=== PATIENT | male | born 1960 | race Caucasian/White ===

== ENCOUNTER 2020-07-02 23:39 | Inpatient (IN) | payer BC, MEDICARE ==
[~2020-07-02] VITALS: Ht 180.3 cm; Wt 101.2 kg
[2020-07-02 11:00] VITALS: BP 156/90
[~2020-07-02 23:39] MED LIST: ALBU8.5H6 IH; INSU100I11 SQ; INSU100I17 SQ; INSU100V8 SQ; OXYM30SP72 NS
[2020-07-02] MEDS ORDERED: HEPARIN 25,000UTS/250ML PREMIX 250 ML IV PRN (23:45)
[2020-07-02] MEDS ORDERED: HEPARIN for IV BOLUS 10,000 UNIT/10 ML VIAL. IV PRN (23:45)
[2020-07-03] MEDS ORDERED: CARVEDILOL 12.5 MG TABLET. PO SCH (01:00)
[2020-07-03] MEDS: ANTI-COAG MONITOR BY PHARMACY. MC PRN (02:38)
[2020-07-03 02:40] VITALS: BP 118/73
[2020-07-03] MEDS ORDERED: ATOR10TA60 PO (02:55)
[2020-07-03] MEDS ORDERED: SEVE800T9 PO (02:55)
[2020-07-03] MEDS ORDERED: FERR325T14 PO (02:55)
[2020-07-03] MEDS ORDERED: ONDA4TAB12 PO (02:55)
[2020-07-03] MEDS ORDERED: AMLO-187 PO (02:55)
[2020-07-03] MEDS ORDERED: PANT20TA2 PO (02:55)
[2020-07-03] MEDS ORDERED: CALC200T3 PO (02:55)
[2020-07-03] MEDS ORDERED: INSU100I13 SQ (02:55)
[2020-07-03] MEDS ORDERED: FURO80TA3 PO (02:55)
[2020-07-03] MEDS ORDERED: INSU100V31 SQ (02:55)
[2020-07-03] MEDS ORDERED: HYDR-2761 PO (02:55)
[2020-07-03] MEDS ORDERED: FERR210T PO (02:55)
[2020-07-03] MEDS ORDERED: CARV25TA2 PO (02:55)
[2020-07-03] MEDS ORDERED: CALC0.25 PO (02:55)
[2020-07-03] MEDS ORDERED: LOSA25TA PO (02:55)
[2020-07-03] MEDS ORDERED: MAGN400T5 PO (02:55)
[2020-07-03] MEDS ORDERED: HYDR-2868 PO (02:55)
[2020-07-03 05:18] LABS: BASO # 0.1 x10^3/uL (0.0-0.2); BASO % 1 % (0-3); EOS # 0.3 x10^3/uL (0.0-0.7); EOS % 4 % (0-3); HEMATOCRIT 35.6 % (39.0-53.0); HEMOGLOBIN 11.8 g/dL (13.0-17.5); LYMPH # 0.6 x10^3/uL (1.0-4.8); LYMPH % 9 % (24-48); MEAN CORPUSCULAR HEMOGLOBIN 30 pg (25-35); MEAN CORPUSCULAR HGB CONC 33 g/dL (31-37); MEAN CORPUSCULAR VOLUME 89 fL (79-100); MONO # 0.9 x10^3/uL (0.0-1.1); MONO % 12 % (0-9); NEUT # 5.3 x10^3/uL (1.8-7.7); NEUT % 74 % (31-73); PLATELET COUNT 203 x10^3/uL (140-400); RED BLOOD COUNT 3.99 x10^6/uL (4.30-5.70); RED CELL DISTRIBUTION WIDTH 17.7 % (11.5-14.5); WHITE BLOOD COUNT 7.1 x10^3/uL (4.0-11.0)
[2020-07-03 05:45] LABS: CALCIUM 7.1 mg/dL (8.5-10.1); CREATININE 10.8 mg/dL (0.7-1.3); GFR 4.9; POTASSIUM 3.7 mmol/L (3.5-5.1)
[2020-07-03 05:46] LABS: CHOLESTEROL/HDL RATIO 2.5
[2020-07-03 07:00] VITALS: BP 137/67
[2020-07-03] MEDS ORDERED: METOPROLOL IV PUSH 5 MG/5 ML VIAL. IVP PRN (09:30)
--- NOTE | 2020-07-03 10:30 | NUR ---
Wound/Ostomy Care Wound Type/Assessment: Wound care consult for left leg wound, pt unsure how it developed, appears to be cover with a stable eschar. Pt currently on dialysis. No other wounds noted on head to toe skin assessment. Treatment Recommendations/Plan: keep wound clean and dry, paint with betadine daily. Education provided: pt educated on PU prevention and on keeping weight off wound for healing Offloading surface/device: na, pt offloads independently Recommended Referrals/Tests: n/a Discharge Recommendations for dressings: same as above, told pt to let his nurse know if wound start draining or if it becomes soft so we can reevaluate, pt verbalized understanding.
[2020-07-03 11:00] VITALS: BP 137/55
[2020-07-03] MEDS ORDERED: DIGOXIN IV 500 MCG/2 ML AMPUL. IV ONE (12:30)
--- NOTE | 2020-07-03 14:15 | PDOC2 ---
CONSULT Date of Consult Date of Consult DATE: 07/03/20 TIME: 14:15 Reason for Consult Reason for Consult: ESRD on PD Source Source: Chart review, Patient History of Present Illness Reason for Visit: Mr Bonilla is a 60-year-old male w/ PMHx DM2, HTN, PVD, ESRD on PD, diastolic CHF who presents with chest tightness to [facility] on 07/02/2020. Patient states he was sitting at his doctor's office in the waiting room when the tightness began. Patient also reports nausea but denies vomiting. Patient denies any shortness of breath, dizziness, or radiation of pain. Patient was at his PCP for a wound check to lateral left lower leg. Patient states he did not notice the wound until Thursday. he did run out of coreg 5 days prior to presentation and noticed his heart racing since then. EKG sinus tachycardia, with a right bundle branch block, heart rate 131. On telemetry notably in atrial arrhythmia, he notes prior eliquis in the past but had life-threatening GI bleed. Past Medical History Past Medical History Cardiovascular: CHF, HTN, Hyperlipidemia, Other (PAD) CENTRAL NERVOUS SYSTEM: Periperal neuropathy GI: GI bleed Heme/Onc: Anemia NOS Hepatobiliary: No pertinent hx Psych: Anxiety Musculoskeletal: Osteoarthritis Rheumatologic: No pertinent hx Infectious disease: No pertinent hx ENT: No pertinent hx Renal/: Chronic renal failure (ESRD) Endocrine: Diabetes Dermatology: Other (left calf wound) Renal/: Acute renal failure Endocrine: Diabetes Past Surgical History Past Surgical History (LAV fistula; toe amputation, PD cath placement) Past Surgical History: Pacemaker Family History Family History Diabetes Family History: Family History Unknown Social History Social History Smoke: No ALCOHOL: none Current Medications Current Medications Current Medications Heparin Sodium/ Dextrose 250 ml @ 0 mls/hr CONT PRN IV PER PROTOCOL; Start 07/02/20 at 23:45 Heparin Sodium (Porcine) (Heparin Sodium) 2,550 unit PRN Q6HRS PRN IV FOR UFH LEVEL LESS THAN 0.2; Start 07/02/20 at 23:45 Info (Anti-Coagulation Monitoring By Pharmacy) 1 each PRN DAILY PRN MC SEE COMMENTS Last administered on 07/03/20at 02:38; Start 07/03/20 at 00:15 Carvedilol (Coreg) 25 mg BIDWMEALS PO Last administered on 07/03/20at 01:16; Start 07/03/20 at 01:00; Stop 07/03/20 at 12:46; Status DC Metoprolol Tartrate (Lopressor Vial) 5 mg PRN Q6HRS PRN IVP HR>110 BPM; Start 07/03/20 at 09:30 Digoxin (Lanoxin) 500 mcg 1X ONCE IV ; Start 07/03/20 at 12:30; Stop 07/03/20 at 12:31; Status DC Metoprolol Tartrate (Lopressor) 25 mg Q6HRS PO ; Start 07/03/20 at 13:00 Active Scripts Active Reported Renvela (Sevelamer Carbonate) 800 Mg Tablet 800 Mg PO TIDWMEALS Protonix (Pantoprazole Sodium) 20 Mg Tablet.dr 40 Mg PO BID Ondansetron Odt (Ondansetron) 4 Mg Tab.rapdis 4 Mg PO PRN Q8HRS PRN Magnesium Oxide 400 Mg Tablet 400 Mg PO DAILY Cozaar (Losartan Potassium) 25 Mg Tablet 25 Mg PO DAILY Lantus Solostar (Insulin Glargine,Hum.rec.anlog) 100 Unit/1 Ml Insuln.pen 20 Unit SQ HS Novolog (Insulin Aspart) 100 Unit/1 Ml Vial Unknown Dose SQ TIDWMEALS Hydrocodone-Apap 5-325 (Hydrocodone Bit/Acetaminophen) 1 Tab Tablet 1 Tab PO PRN Q6HRS PRN Hydralazine Hcl 25 Mg Tablet 25 Mg PO TID Furosemide 80 Mg Tablet 160 Mg PO DAILY Ferrous Sulfate 325 Mg Tablet 325 Mg PO QODAY Ferric Citrate 210 Mg Tablet 3 Tab PO BIDWMEALS Carvedilol 25 Mg Tablet 25 Mg PO BIDWMEALS Tums (Calcium Carbonate) 200 Mg Tab.chew 2 Tab PO TIDPCHC PRN Calcitriol 0.25 Mcg Capsule 0.25 Mcg PO DAILY Atorvastatin Calcium 10 Mg Tablet 10 Mg PO HS Amlodipine Besylate 10 Mg Tablet 10 Mg PO DAILY Allergies Allergies: Coded Allergies: levofloxacin (Verified Allergy, Intermediate, Nausea and Vomiting, 09/28/13) ROS Review of System As per HPI, rest of the ROS is negative Physical Exam Physical Exam General: No acute distress HEENT: Atraumatic, Mucous membr. moist/pink Neck supple Lungs: diminished bases, non labored Heart: (AFIB RVR) Abdomen: Soft, PD actheter place, No tenderness, no discharge from exit site Extremities: No cyanosis, No edema Skin: left lateral calf wound with large scabbing) Neuro: Normal speech, Sensation intact Psych/Mental Status: Mental status NL, Other (flat affect) Vital Signs Vital Signs Date Time Temp Pulse Resp B/P (MAP) Pulse Ox O2 Delivery O2 Flow Rate FiO2 07/03/20 02:40 97.8 141 18 118/73 (88) 96 Room Air 97.8 Assessment & Plan ESRD on PD under Dr. Wu's care He states he has been doing CAPD , Continue per home prescription Chest pain - resolved. likely from atrial tachycardia AFIB RVR - Cardiology consulted Chronic RBBB Hx of GI bleed due to eliquis Hx of RLE PAD - prior DIRECTOR [employer]/stent. s/p TMA of right foot DM2 COVID 19 suspected - rapid testing negative Labs Labs Laboratory Tests Test 07/03/20 04:18 07/03/20 07:30 07/03/20 11:26 White Blood Count 7.1 x10^3/uL (4.0-11.0) Red Blood Count 3.99 x10^6/uL (4.30-5.70) Hemoglobin 11.8 g/dL (13.0-17.5) Hematocrit 35.6 % (39.0-53.0) Mean Corpuscular Volume 89 fL (79-100) Mean Corpuscular Hemoglobin 30 pg (25-35) Mean Corpuscular Hemoglobin Concent 33 g/dL (31-37) Red Cell Distribution Width 17.7 % (11.5-14.5) Platelet Count 203 x10^3/uL (140-400) Neutrophils (%) (Auto) 74 % (31-73) Lymphocytes (%) (Auto) 9 % (24-48) Monocytes (%) (Auto) 12 % (0-9) Eosinophils (%) (Auto) 4 % (0-3) Basophils (%) (Auto) 1 % (0-3) Neutrophils # (Auto) 5.3 x10^3/uL (1.8-7.7) Lymphocytes # (Auto) 0.6 x10^3/uL (1.0-4.8) Monocytes # (Auto) 0.9 x10^3/uL (0.0-1.1) Eosinophils # (Auto) 0.3 x10^3/uL (0.0-0.7) Basophils # (Auto) 0.1 x10^3/uL (0.0-0.2) Heparin Anti-Xa Act, Unfractionated < 0.10 IU/mL (0.30-0.70) Sodium Level 140 mmol/L (136-145) Potassium Level 3.7 mmol/L (3.5-5.1) Chloride Level 102 mmol/L (98-107) Carbon Dioxide Level 18 mmol/L (21-32) Anion Gap 20 (6-14) Blood Urea Nitrogen 89 mg/dL (8-26) Creatinine 10.8 mg/dL (0.7-1.3) Estimated GFR (Cockcroft-Gault) 4.9 Glucose Level 75 mg/dL (70-99) Calcium Level 7.1 mg/dL (8.5-10.1) Troponin I Quantitative 0.120 ng/mL (0.000-0.055) Triglycerides Level 54 mg/dL (0-150) Cholesterol Level 100 mg/dL (0-200) LDL Cholesterol, Calculated 49 mg/dL (0-100) VLDL Cholesterol, Calculated 11 mg/dL (0-40) Non-HDL Cholesterol Calculated 60 mg/dL (0-129) HDL Cholesterol 40 mg/dL (40-60) Cholesterol/HDL Ratio 2.5 Glucose (Fingerstick) 65 mg/dL (70-99) 78 mg/dL (70-99) Laboratory Tests Test 07/03/20 04:18 07/03/20 07:30 07/03/20 11:26 White Blood Count 7.1 x10^3/uL (4.0-11.0) Red Blood Count 3.99 x10^6/uL (4.30-5.70) Hemoglobin 11.8 g/dL (13.0-17.5) Hematocrit 35.6 % (39.0-53.0) Mean Corpuscular Volume 89 fL (79-100) Mean Corpuscular Hemoglobin 30 pg (25-35) Mean Corpuscular Hemoglobin Concent 33 g/dL (31-37) Red Cell Distribution Width 17.7 % (11.5-14.5) Platelet Count 203 x10^3/uL (140-400) Neutrophils (%) (Auto) 74 % (31-73) Lymphocytes (%) (Auto) 9 % (24-48) Monocytes (%) (Auto) 12 % (0-9) Eosinophils (%) (Auto) 4 % (0-3) Basophils (%) (Auto) 1 % (0-3) Neutrophils # (Auto) 5.3 x10^3/uL (1.8-7.7) Lymphocytes # (Auto) 0.6 x10^3/uL (1.0-4.8) Monocytes # (Auto) 0.9 x10^3/uL (0.0-1.1) Eosinophils # (Auto) 0.3 x10^3/uL (0.0-0.7) Basophils # (Auto) 0.1 x10^3/uL (0.0-0.2) Heparin Anti-Xa Act, Unfractionated < 0.10 IU/mL (0.30-0.70) Sodium Level 140 mmol/L (136-145) Potassium Level 3.7 mmol/L (3.5-5.1) Chloride Level 102 mmol/L (98-107) Carbon Dioxide Level 18 mmol/L (21-32) Anion Gap 20 (6-14) Blood Urea Nitrogen 89 mg/dL (8-26) Creatinine 10.8 mg/dL (0.7-1.3) Estimated GFR (Cockcroft-Gault) 4.9 Glucose Level 75 mg/dL (70-99) Calcium Level 7.1 mg/dL (8.5-10.1) Troponin I Quantitative 0.120 ng/mL (0.000-0.055) Triglycerides Level 54 mg/dL (0-150) Cholesterol Level 100 mg/dL (0-200) LDL Cholesterol, Calculated 49 mg/dL (0-100) VLDL Cholesterol, Calculated 11 mg/dL (0-40) Non-HDL Cholesterol Calculated 60 mg/dL (0-129) HDL Cholesterol 40 mg/dL (40-60) Cholesterol/HDL Ratio 2.5 Glucose (Fingerstick) 65 mg/dL (70-99) 78 mg/dL (70-99) Review All relevant outside records, renal labs, imaging studies, telemetry/EKG's were reviewed. LOBO RANGEL MD Jul 03, 2020 14:15
--- NOTE | 2020-07-03 14:43 | PDOC2 ---
JOÃO GONZALEZ BIRD KEEPER 07/03/20 1443: CARDIAC CONSULT DATE OF CONSULT Date of Consult DATE: 07/03/20 TIME: 14:19 REASON FOR CONSULT Reason for Consult: Chest pain REFERRING PHYSICIAN Referring Physician: Franco SOURCE Source: Chart review, Patient HISTORY OF PRESENT ILLNESS HISTORY OF PRESENT ILLNESS This is a pleasant 60 yo male admitted for complains of chest pain. He was initially at [facility] and transferred to [facility] for nephrology coverage and for further cardiac evaluation. Reports of chest tightness starting yesterday. No SOA but reports of indigestion feeling. He sees Dr. 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 No hx of CAD or VTE but significant for ESRD and used to have HD but now on PD. Reportsno dizziness or palpitations but upon admission his HR was noted to be fast and confirmed he is in AFIB RVR. He told me that he was told of heart flutter in the past but he is not on any ASA. He was actually on eliquis in the past and could not tell me what for exactly but told me maybe from his arterial problem on his right leg. He did not tolerate the eliquis with significant anemia associated with GI bleed. He is DM and has had issues with circulation to his right leg and ulcers and actually had [employer] with stent to his RLE over a yr ago and also had some toe amputations. Has a healing wound to the lateral part of his left calf but could not ascertain how he got it but he does have neuropathy. PAST MEDICAL HISTORY Cardiovascular: CHF, HTN, Hyperlipidemia, Other (PAD) CENTRAL NERVOUS SYSTEM: Periperal neuropathy GI: GI bleed Heme/Onc: Anemia NOS Hepatobiliary: No pertinent hx Psych: Anxiety Musculoskeletal: Osteoarthritis Rheumatologic: No pertinent hx Infectious disease: No pertinent hx ENT: No pertinent hx Renal/: Chronic renal failure (ESRD) Endocrine: Diabetes Dermatology: Other (left calf wound) PAST SURGICAL HISTORY Past Surgical History: Other (LAV fistula; toe amputation, PD cath placement) FAMILY HISTORY Family History: Diabetes SOCIAL HISTORY Smoke: No ALCOHOL: none Lives: with Family CURRENT MEDICATIONS CURRENT MEDICATIONS Current Medications Medications (Trade) Dose Ordered Sig/Jorge Route PRN Reason Start Time Stop Time Status Last Admin Dose Admin Info (Anti-Coagulation Monitoring By Pharmacy) 1 each PRN DAILY PRN MC SEE COMMENTS 07/03/20 00:15 07/03/20 02:38 Carvedilol (Coreg) 25 mg BIDWMEALS PO 07/03/20 01:00 07/03/20 12:46 DC 07/03/20 01:16 ALLERGIES ALLERGIES: Coded Allergies: levofloxacin (Verified Allergy, Intermediate, Nausea and Vomiting, 09/28/13) ROS Review of System 14 point ROS evaluated with pertinent positives noted per HPI PHYSICAL EXAM General: Alert, Oriented X3, Cooperative, No acute distress HEENT: Atraumatic, Mucous membr. moist/pink Lungs: Other (diminished bases) Heart: Other (AFIB RVR) Abdomen: Soft Extremities: No cyanosis, Other (2+ bilateral LE pitting edema) Skin: Other (left lateral calf wound with large scabbing) Neuro: Normal speech, Sensation intact Psych/Mental Status: Mental status NL, Other (flat affect) MUSCULOSKELETAL: Osteoarthritic changes both hands VITALS/I&O VITALS/I&O: Vital Signs Date Time Temp Pulse Resp B/P (MAP) Pulse Ox O2 Delivery O2 Flow Rate FiO2 07/03/20 02:40 97.8 141 18 118/73 (88) 96 Room Air 97.8 LABS Lab: Laboratory Tests Test 07/03/20 04:18 07/03/20 07:30 07/03/20 11:26 White Blood Count 7.1 x10^3/uL (4.0-11.0) Red Blood Count 3.99 x10^6/uL (4.30-5.70) L Hemoglobin 11.8 g/dL (13.0-17.5) L Hematocrit 35.6 % (39.0-53.0) L Mean Corpuscular Volume 89 fL (79-100) Mean Corpuscular Hemoglobin 30 pg (25-35) Mean Corpuscular Hemoglobin Concent 33 g/dL (31-37) Red Cell Distribution Width 17.7 % (11.5-14.5) H Platelet Count 203 x10^3/uL (140-400) Neutrophils (%) (Auto) 74 % (31-73) H Lymphocytes (%) (Auto) 9 % (24-48) L Monocytes (%) (Auto) 12 % (0-9) H Eosinophils (%) (Auto) 4 % (0-3) H Basophils (%) (Auto) 1 % (0-3) Neutrophils # (Auto) 5.3 x10^3/uL (1.8-7.7) Lymphocytes # (Auto) 0.6 x10^3/uL (1.0-4.8) L Monocytes # (Auto) 0.9 x10^3/uL (0.0-1.1) Eosinophils # (Auto) 0.3 x10^3/uL (0.0-0.7) Basophils # (Auto) 0.1 x10^3/uL (0.0-0.2) Heparin Anti-Xa Act, Unfractionated < 0.10 IU/mL (0.30-0.70) L Sodium Level 140 mmol/L (136-145) Potassium Level 3.7 mmol/L (3.5-5.1) Chloride Level 102 mmol/L (98-107) Carbon Dioxide Level 18 mmol/L (21-32) L Anion Gap 20 (6-14) H Blood Urea Nitrogen 89 mg/dL (8-26) H Creatinine 10.8 mg/dL (0.7-1.3) H Estimated GFR (Cockcroft-Gault) 4.9 Glucose Level 75 mg/dL (70-99) Calcium Level 7.1 mg/dL (8.5-10.1) L Troponin I Quantitative 0.120 ng/mL (0.000-0.055) Triglycerides Level 54 mg/dL (0-150) Cholesterol Level 100 mg/dL (0-200) LDL Cholesterol, Calculated 49 mg/dL (0-100) VLDL Cholesterol, Calculated 11 mg/dL (0-40) Non-HDL Cholesterol Calculated 60 mg/dL (0-129) HDL Cholesterol 40 mg/dL (40-60) Cholesterol/HDL Ratio 2.5 Glucose (Fingerstick) 65 mg/dL (70-99) L 78 mg/dL (70-99) Laboratory Tests 07/03/20 04:18 Laboratory Tests 07/03/20 04:18 ASSESSMENT/PLAN ASSESSMENT/PLAN 1. AFIB RVR: possibly new 2. ESRD: uses PD 3. Mild troponin elevation: peaked at 0.1, possibly demand mediated with above culprits 4. Chronic RBBB 5. Hx of GI bleed due to eliquis 6. cute on chronic diastolic CHF 7. Hx of RLE PAD: prior [employer]/stent. 8. Left calf wound: appears to be pressure wound with large scabbing 9. Positive for claudication: possibly combine arterial/neuropathic 10. DM2 with DPN 11. PUI 12. Chest pain: likely from RVR Recommendations 1. DC coreg. Lopressor IV, start on metoprolol 25 mg q6 PO. Dig IV x1 if RVR is refractory 2. DC heparin. Start on ASA for stroke prevention. Unclear source of GI bleed in the past but reported started after low dose eliquis 3. Restart other home BP meds 4. Lipids are well on goal. Continue secondary prevention measures 5. LLE arterial duplex 6. TTE pending covid. CTA chest negative for PE 7. Outpt ischemic workup. JM HDEZ MD 07/04/20 0814: CARDIAC CONSULT ASSESSMENT/PLAN ASSESSMENT/PLAN Pt. seen and examined. Agree with above [employer] note. late entry for 07/03/2020 due to EMR outage. JOÃO GONZALEZ APRN Jul 03, 2020 14:43 JM HDEZ MD Jul 04, 2020 08:14
[2020-07-03 15:00] VITALS: BP 131/57
--- NOTE | 2020-07-03 15:42 | NUR ---
ANJUM following for discharge planning. Spoke with RN and reviewed chart. Pt transferred from [place]. Pt BERNARDO palmer, NPO, room air. Pt on a Heparin drip with consults to cardiology and nephrology. Pt on HD. ANJUM following. Addendum: 07/03/20 at 1543 by SERENA VALERO Pt on PD not HD
--- NOTE | 2020-07-03 15:55 | PDOC1 ---
History and Physical Date of Admission Date of Admission DATE: 07/03/20 TIME: 15:45 Identification/Chief Complaint Chief Complaint Chest pain Source Source: Patient History of Present Illness History of Present Illness Mr Bonilla is a 60-year-old male w/ PMHx DM2, HTN, PVD, ESRD on PD, diastolic CHF who presents with chest tightness to [place] [facility] on 07/02/2020. Patient states he was sitting at his doctor's office in the waiting room when the tightness began. Patient also reports nausea but denies vomiting. Patient denies any shortness of breath, dizziness, or radiation of pain. Patient was at his PCP for a wound check to lateral left lower leg. Patient states he did not notice the wound until Thursday. Patient denies taking anything prior to arrival. On further review he notes he did run out of coreg 5 days prior to presentation and noticed his heart racing since then. EKG sinus tachycardia, with a right bundle branch block, heart rate 131. Troponin 0.109. D-dimer was elevated 0.55. CTA ordered to rule out PE which was negative. Zosyn and Vanco given for lateral left leg wounds. Ankle, foot, tib-fib x-ray negative for osteomyelitis. Aspirin was also given to patient and he was transferred to [facility] for nephrology and cardiology consultation and further treatment. His chest pain had subsided by the time he arrived. Troponin still 0.1 On telemetry notably in atrial arrhythmia, he notes prior eliquis in the past but had life-threatening GI bleed. Past Medical History Cardiovascular: CHF, HTN, Hyperlipidemia, Other (PAD) CENTRAL NERVOUS SYSTEM: Periperal neuropathy GI: GI bleed Heme/Onc: Anemia NOS Hepatobiliary: No pertinent hx Psych: Anxiety Musculoskeletal: Osteoarthritis Rheumatologic: No pertinent hx Infectious disease: No pertinent hx ENT: No pertinent hx Renal/: Chronic renal failure (ESRD) Endocrine: Diabetes Dermatology: Other (left calf wound) Past Surgical History Past Surgical History: Other (LAV fistula; toe amputation, PD cath placement) Family History Family History: Diabetes Social History Smoke: No ALCOHOL: none Current Medications Current Medications Current Medications Heparin Sodium/ Dextrose 250 ml @ 0 mls/hr CONT PRN IV PER PROTOCOL; Start 07/02/20 at 23:45 Heparin Sodium (Porcine) (Heparin Sodium) 2,550 unit PRN Q6HRS PRN IV FOR UFH LEVEL LESS THAN 0.2; Start 07/02/20 at 23:45 Info (Anti-Coagulation Monitoring By Pharmacy) 1 each PRN DAILY PRN MC SEE COMMENTS Last administered on 07/03/20at 02:38; Start 07/03/20 at 00:15 Carvedilol (Coreg) 25 mg BIDWMEALS PO Last administered on 07/03/20at 01:16; Start 07/03/20 at 01:00; Stop 07/03/20 at 12:46; Status DC Metoprolol Tartrate (Lopressor Vial) 5 mg PRN Q6HRS PRN IVP HR>110 BPM; Start 07/03/20 at 09:30 Digoxin (Lanoxin) 500 mcg 1X ONCE IV ; Start 07/03/20 at 12:30; Stop 07/03/20 at 12:31; Status DC Metoprolol Tartrate (Lopressor) 25 mg Q6HRS PO ; Start 07/03/20 at 13:00 Aspirin (Ecotrin) 81 mg DAILYWBKFT PO ; Start 07/03/20 at 15:00 Active Scripts Active Reported Renvela (Sevelamer Carbonate) 800 Mg Tablet 800 Mg PO TIDWMEALS Protonix (Pantoprazole Sodium) 20 Mg Tablet.dr 40 Mg PO BID Ondansetron Odt (Ondansetron) 4 Mg Tab.rapdis 4 Mg PO PRN Q8HRS PRN Magnesium Oxide 400 Mg Tablet 400 Mg PO DAILY Cozaar (Losartan Potassium) 25 Mg Tablet 25 Mg PO DAILY Lantus Solostar (Insulin Glargine,Hum.rec.anlog) 100 Unit/1 Ml Insuln.pen 20 Unit SQ HS Novolog (Insulin Aspart) 100 Unit/1 Ml Vial Unknown Dose SQ TIDWMEALS Hydrocodone-Apap 5-325 (Hydrocodone Bit/Acetaminophen) 1 Tab Tablet 1 Tab PO PRN Q6HRS PRN Hydralazine Hcl 25 Mg Tablet 25 Mg PO TID Furosemide 80 Mg Tablet 160 Mg PO DAILY Ferrous Sulfate 325 Mg Tablet 325 Mg PO QODAY Ferric Citrate 210 Mg Tablet 3 Tab PO BIDWMEALS Carvedilol 25 Mg Tablet 25 Mg PO BIDWMEALS Tums (Calcium Carbonate) 200 Mg Tab.chew 2 Tab PO TIDPCHC PRN Calcitriol 0.25 Mcg Capsule 0.25 Mcg PO DAILY Atorvastatin Calcium 10 Mg Tablet 10 Mg PO HS Amlodipine Besylate 10 Mg Tablet 10 Mg PO DAILY Allergies Allergies: Coded Allergies: levofloxacin (Verified Allergy, Intermediate, Nausea and Vomiting, 09/28/13) ROS General: No: Chills, Night Sweats, Fatigue, Malaise, Appetite, Other PSYCHOLOGICAL ROS: No: Anxiety, Behavioral Disorder, Concentration difficultie, Decreased libido, Depression, Disorientation, Hallucinations, Hostility, Irritablity, Memory difficulties, Mood Swings, Obsessive thoughts, Physical abuse, Sexual abuse, Sleep disturbances, Suicidal ideation, Other Eyes: No Blurry vision, No Decreased vision, No Double vision, No Dry eyes, No Excessive tearing, No Eye Pain, No Itchy Eyes, No Loss of vision, No Photophobia, No Scotomata, No Uses contacts, No Uses glasses, No Other HEENT: No: Heacaches, Visual Changes, Hearing change, Nasal congestion, Nasal discharge, Oral lesions, Sinus pain, Sore Throat, Epistaxis, Sneezing, Snoring, Tinnitus, Vertigo, Vocal changes, Other ALLERGY AND IMMUNOLOGY: No: Hives, Insect Bite Sensitivity, Itchy/Watery Eyes, Nasal Congestion, Post Nasal Drip, Seasonal Allergies, Other Hematological and Lymphatic: No: Bleeding Problems, Blood Clots, Blood Transfusions, Brusing, Night Sweats, Pallor, Swollen Lymph Nodes, Other ENDOCRINE: No: Breast Changes, Galactorrhea, Hair Pattern Changes, Hot Flashes, Malaise/lethargy, Mood Swings, Palpitations, Polydipsia/polyuria, Skin Changes, Temperature Intolerance, Unexpected Weight Changes, Other Breast: No New/Changing Breast Lumps, No Nipple changes, No Nipple discharge, No Other Respiratory: No: Cough, Hemoptysis, Orthopnea, Pleuritic Pain, Shortness of breath, SOB with excertion, Sputum Changes, Stridor, Tachypnea, Wheezing, Other Cardiovascular: yes Chest Pain; No Palpitations, No Orthopnea, No Paroxysmal Noc. Dyspnea, No Edema, No Lt Headedness, No Other Gastrointestinal: No Nausea, No Vomiting, No Abdominal Pain, No Diarrhea, No Constipation, No Melena, No Hematochezia, No Other Genitourinary: No Dysuria, No Frequency, No Incontinence, No Hematuria, No Retention, No Discharge, No Urgency, No Pain, No Flank Pain, No Other, No , No , No , No , No , No , No Musculoskeletal: No Gait Disturbance, No Joint Pain, No Joint Stiffness, No Joint Swelling, No Muscle Pain, No Muscular Weakness, No Pain In:, No Swelling In:, No Other Neurological: No Behavorial Changes, No Bowel/Bladder ControlChng, No Confusion, No Dizziness, No Gait Disturbance, No Headaches, No Impaired Coord/balance, No Memory Loss, No Numbness/Tingling, No Seizures, No Speech Problems, No Tremors, No Visual Changes, No Weakness, No Other Skin: No Dry Skin, No Eczema, No Hair Changes, No Lumps, No Mole Changes, No Mottling, No Nail Changes, No Pruritus, No Rash, No Skin Lesion Changes, No Other, No Acne Physical Exam General: Alert, Oriented X3, Cooperative, No acute distress HEENT: Atraumatic, PERRLA, EOMI, Mucous membr. moist/pink Lungs: Clear to auscultation, Normal air movement Heart: S1S2, no thrills, no rubs Abdomen: Normal bowel sounds, Soft, No tenderness, No hepatosplenomegaly, No masses, Other (PD cath clean dry) Extremities: No clubbing, No cyanosis, No edema, Normal pulses, No tenderness/swelling Skin: Other (Left lateral lower leg with 4x8cm eschar, dusky, no surrounding erythema) Neuro: Normal gait, Normal speech, Strength at 5/5 X4 ext, Normal tone, Sensation intact, Cranial nerves 3-12 NL, Reflexes 2+ Psych/Mental Status: Mental status NL, Mood NL Vitals Vitals Vital Signs Date Time Temp Pulse Resp B/P (MAP) Pulse Ox O2 Delivery O2 Flow Rate FiO2 07/03/20 02:40 97.8 141 18 118/73 (88) 96 Room Air 97.8 Labs Labs Laboratory Tests Test 07/03/20 04:18 07/03/20 07:30 07/03/20 11:26 White Blood Count 7.1 x10^3/uL (4.0-11.0) Red Blood Count 3.99 x10^6/uL (4.30-5.70) Hemoglobin 11.8 g/dL (13.0-17.5) Hematocrit 35.6 % (39.0-53.0) Mean Corpuscular Volume 89 fL (79-100) Mean Corpuscular Hemoglobin 30 pg (25-35) Mean Corpuscular Hemoglobin Concent 33 g/dL (31-37) Red Cell Distribution Width 17.7 % (11.5-14.5) Platelet Count 203 x10^3/uL (140-400) Neutrophils (%) (Auto) 74 % (31-73) Lymphocytes (%) (Auto) 9 % (24-48) Monocytes (%) (Auto) 12 % (0-9) Eosinophils (%) (Auto) 4 % (0-3) Basophils (%) (Auto) 1 % (0-3) Neutrophils # (Auto) 5.3 x10^3/uL (1.8-7.7) Lymphocytes # (Auto) 0.6 x10^3/uL (1.0-4.8) Monocytes # (Auto) 0.9 x10^3/uL (0.0-1.1) Eosinophils # (Auto) 0.3 x10^3/uL (0.0-0.7) Basophils # (Auto) 0.1 x10^3/uL (0.0-0.2) Heparin Anti-Xa Act, Unfractionated < 0.10 IU/mL (0.30-0.70) Sodium Level 140 mmol/L (136-145) Potassium Level 3.7 mmol/L (3.5-5.1) Chloride Level 102 mmol/L (98-107) Carbon Dioxide Level 18 mmol/L (21-32) Anion Gap 20 (6-14) Blood Urea Nitrogen 89 mg/dL (8-26) Creatinine 10.8 mg/dL (0.7-1.3) Estimated GFR (Cockcroft-Gault) 4.9 Glucose Level 75 mg/dL (70-99) Calcium Level 7.1 mg/dL (8.5-10.1) Troponin I Quantitative 0.120 ng/mL (0.000-0.055) Triglycerides Level 54 mg/dL (0-150) Cholesterol Level 100 mg/dL (0-200) LDL Cholesterol, Calculated 49 mg/dL (0-100) VLDL Cholesterol, Calculated 11 mg/dL (0-40) Non-HDL Cholesterol Calculated 60 mg/dL (0-129) HDL Cholesterol 40 mg/dL (40-60) Cholesterol/HDL Ratio 2.5 Glucose (Fingerstick) 65 mg/dL (70-99) 78 mg/dL (70-99) Laboratory Tests Test 07/03/20 04:18 07/03/20 07:30 07/03/20 11:26 White Blood Count 7.1 x10^3/uL (4.0-11.0) Red Blood Count 3.99 x10^6/uL (4.30-5.70) Hemoglobin 11.8 g/dL (13.0-17.5) Hematocrit 35.6 % (39.0-53.0) Mean Corpuscular Volume 89 fL (79-100) Mean Corpuscular Hemoglobin 30 pg (25-35) Mean Corpuscular Hemoglobin Concent 33 g/dL (31-37) Red Cell Distribution Width 17.7 % (11.5-14.5) Platelet Count 203 x10^3/uL (140-400) Neutrophils (%) (Auto) 74 % (31-73) Lymphocytes (%) (Auto) 9 % (24-48) Monocytes (%) (Auto) 12 % (0-9) Eosinophils (%) (Auto) 4 % (0-3) Basophils (%) (Auto) 1 % (0-3) Neutrophils # (Auto) 5.3 x10^3/uL (1.8-7.7) Lymphocytes # (Auto) 0.6 x10^3/uL (1.0-4.8) Monocytes # (Auto) 0.9 x10^3/uL (0.0-1.1) Eosinophils # (Auto) 0.3 x10^3/uL (0.0-0.7) Basophils # (Auto) 0.1 x10^3/uL (0.0-0.2) Heparin Anti-Xa Act, Unfractionated < 0.10 IU/mL (0.30-0.70) Sodium Level 140 mmol/L (136-145) Potassium Level 3.7 mmol/L (3.5-5.1) Chloride Level 102 mmol/L (98-107) Carbon Dioxide Level 18 mmol/L (21-32) Anion Gap 20 (6-14) Blood Urea Nitrogen 89 mg/dL (8-26) Creatinine 10.8 mg/dL (0.7-1.3) Estimated GFR (Cockcroft-Gault) 4.9 Glucose Level 75 mg/dL (70-99) Calcium Level 7.1 mg/dL (8.5-10.1) Troponin I Quantitative 0.120 ng/mL (0.000-0.055) Triglycerides Level 54 mg/dL (0-150) Cholesterol Level 100 mg/dL (0-200) LDL Cholesterol, Calculated 49 mg/dL (0-100) VLDL Cholesterol, Calculated 11 mg/dL (0-40) Non-HDL Cholesterol Calculated 60 mg/dL (0-129) HDL Cholesterol 40 mg/dL (40-60) Cholesterol/HDL Ratio 2.5 Glucose (Fingerstick) 65 mg/dL (70-99) 78 mg/dL (70-99) Images Images Chest radiograph: The cardiomediastinal silhouette is enlarged. Prominence of the central vasculature and increased lung markings though in part related to low lung volumes with bronchovascular crowding. No confluent airspace infiltrate, large effusion or pneumothorax. Grossly intact osseous structures. Impression: Enlargement of the cardiomediastinal silhouette potentially with a component of central vascular congestion. No large effusion. No localized airspace opacity to suggest an organizing pneumonia. XR FOOT_LEFT 3 VIEWS, XR LT TIBIA + FIBULA, XR EXAM OF ANKLE_LEFT 3V Foot: No dorsal soft tissue swelling. No bone erosion is identified to suggest osteo myelitis. Mild degenerative arthropathy. No bone erosion is seen to suggest osteoarthritis. The mineralization appears normal. Tibia fibula: No acute fracture. There is subcutaneous edema. Arterial calcifications are seen. There is large patellar enthesophyte. Ankle: Ankle mortise is intact. No acute fracture. No soft tissue swelling. Tiny Achilles calcaneal enthesophyte. IMPRESSION: No acute bone abnormality. VTE Prophylaxis Ordered VTE Prophylaxis Devices: Yes VTE Pharmacological Prophylaxi: Yes Assessment/Plan Assessment/Plan A/P: Chest pain - resolved. likely from atrial tachycardia AFIB RVR - appears to be new. Cardiology consulted. 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 s/p TMA of right foot Left leg wound - appears to be pressure wound with no clear infection or cellulitis. Will have wound care for local debridement DM2 - sliding scale insulin COVID 19 suspected - rapid testing negative FEN - Renal ada diet PPX - heparin FULL CODE Dispo - inpatient for above Justifications for Admission Other Justification MARCIA BARROS MD Jul 03, 2020 15:55
[2020-07-03] MEDS: ASPIRIN ENTERIC COATED 81 MG TABLET.DR. PO SCH (16:48)
[2020-07-03] MEDS: METOPROLOL TART IMMED RELEASE 25 MG TABLET. PO SCH ×2 (16:49→22:33)
[2020-07-03 19:00] VITALS: BP 135/85
[2020-07-03] MEDS ORDERED: HYDROcodone/APAP 5/325MG 1 TAB TABLET PO PRN (21:00)
[2020-07-03] MEDS ORDERED: ONDANSETRON ODT 4 MG TAB.RAPDIS. PO PRN (21:00)
[2020-07-03] MEDS ORDERED: ATORVASTATIN CALCIUM 10 MG TABLET. PO SCH (21:00)
[2020-07-03] MEDS ORDERED: INSULIN GLARGINE SYRINGE. SQ SCH (21:00)
[2020-07-03] MEDS: CALCIUM CARBONATE 500 MG TAB.CHEW PO SCH (22:33)
[2020-07-03 23:00] VITALS: BP 142/76
[2020-07-04] MEDS: METOPROLOL TART IMMED RELEASE 25 MG TABLET. PO SCH ×3 (00:53→12:33)
[2020-07-04 03:00] VITALS: BP 162/72
[2020-07-04 07:00] VITALS: BP 153/73
[2020-07-04] MEDS ORDERED: PANTOPRAZOLE 40 MG TABLET.DR. PO SCH (07:30)
[2020-07-04] MEDS: ASPIRIN ENTERIC COATED 81 MG TABLET.DR. PO SCH (08:53)
[2020-07-04] MEDS: SEVELAMER CARBONATE 800 MG TABLET. PO SCH ×2 (08:53→12:32)
[2020-07-04] MEDS: CALCIUM CARBONATE 500 MG TAB.CHEW PO SCH ×2 (08:53→14:00)
[2020-07-04] MEDS ORDERED: CALCITRIOL 0.25 MCG CAPSULE. PO SCH (09:00)
[2020-07-04 11:00] VITALS: BP 153/75
--- NOTE | 2020-07-04 11:07 | PDOC ---
[employer] PROGRESS NOTE Date of Service DOS: DATE: 07/04/20 TIME: 11:06 Chief Complaint Chief Complaint A/P: Chest pain - resolved. likely from atrial tachycardia AFIB RVR - appears to be new. Cardiology consulted. Metoprolol ordered IV ESRD on PD Troponin elevation: peaked at 0.1, possibly demand mediated or chronic elevation Chronic RBBB Hx of GI bleed due to eliquis Acute on chronic diastolic CHF - needs PD, consulted nephrology Hx of RLE PAD - prior [employer]/stent. s/p TMA of right foot Left leg wound - appears to be pressure wound with no clear infection or cellulitis. Will have wound care for local debridement DM2 - sliding scale insulin COVID 19 suspected - rapid testing negative FEN - Renal ada diet PPX - heparin FULL CODE Dispo - inpatient for above History of Present Illness History of Present Illness Mr Bonilla is a 60-year-old male w/ PMHx DM2, HTN, PVD, ESRD on PD, diastolic CHF who presents with chest tightness to [place] ED on 07/02/2020. Patient states he was sitting at his doctor's office in the waiting room when the tightness began. Patient also reports nausea but denies vomiting. Patient denies any shortness of breath, dizziness, or radiation of pain. Patient was at his PCP for a wound check to lateral left lower leg. Patient states he did not notice the wound until Thursday. Patient denies taking anything prior to arrival. On further review he notes he did run out of coreg 5 days prior to presentation and noticed his heart racing since then. EKG sinus tachycardia, with a right bundle branch block, heart rate 131. Troponin 0.109. D-dimer was elevated 0.55. CTA ordered to rule out PE which was negative. Zosyn and Vanco given for lateral left leg wounds. Ankle, foot, tib-fib x-ray negative for osteomyelitis. Aspirin was also given to patient and he was transferred to [facility] for nephrology and cardiology consultation and further treatment. His chest pain had subsided by the time he arrived. Troponin still 0.1 On telemetry notably in atrial arrhythmia, he notes prior eliquis in the past but had life-threatening GI bleed. Rapid COVID 19 negative With metoprolol 50 mg twice daily has been in sinus rhythm. He does note he previously monitor an atrial tachycardia at [facility] and was going to have cardioversion but had also spontaneously gone to sinus rhythm. He has outpatient cardiology follow-up with [facility] cardiology and renal transplant in the next week and is stable for discharge home Consults: Cardiology Vitals/I&O Vitals/I&O: Vital Signs Date Time Temp Pulse Resp B/P (MAP) Pulse Ox O2 Delivery O2 Flow Rate FiO2 07/04/20 11:00 96.7 66 17 153/75 (101) 96 Room Air 96.7 I & O 07/03/20 07/03/20 07/04/20 15:00 23:00 07:00 Intake Total 500 ml 500 ml Output Total 200 ml Balance 500 ml 500 ml -200 ml Physical Exam General: Alert, Oriented X3, Cooperative, No acute distress Heart: Other (AFIB RVR) Lungs: Crackles, Other Abdomen: Normal bowel sounds, Soft, No tenderness, No hepatosplenomegaly, No masses, Other (PD cath clean dry) Extremities: No clubbing, No cyanosis, No edema, Normal pulses, No tenderness/swelling Skin: Other (Left lateral lower leg with 4x8cm eschar, dusky, no surrounding erythema) Labs Labs: Laboratory Tests Test 07/03/20 11:26 07/03/20 16:26 07/03/20 21:50 07/04/20 07:30 Glucose (Fingerstick) 78 mg/dL (70-99) 127 mg/dL (70-99) 296 mg/dL (70-99) 126 mg/dL (70-99) Test 07/04/20 10:45 Glucose (Fingerstick) 138 mg/dL (70-99) Comment Review of Relevant I have reviewed the following items cesar (where applicable) has been applied. Medications: Current Medications Medications (Trade) Dose Ordered Sig/Jorge Route PRN Reason Start Time Stop Time Status Last Admin Dose Admin Digoxin (Lanoxin) 500 mcg 1X ONCE IV 07/03/20 12:30 07/03/20 12:31 DC 07/03/20 12:30 Metoprolol Tartrate (Lopressor) 25 mg Q6HRS PO 07/03/20 13:00 07/04/20 05:45 Aspirin (Ecotrin) 81 mg DAILYWBKFT PO 07/03/20 15:00 07/04/20 08:53 Atorvastatin Calcium (Lipitor) 10 mg HS PO 07/03/20 21:00 07/03/20 22:33 Calcitriol (Rocaltrol) 0.25 mcg DAILY PO 07/04/20 09:00 07/04/20 08:59 Calcium Carbonate/ Glycine (Tums) 500 mg TIDPCHC PO 07/03/20 21:00 07/04/20 08:53 Sevelamer Carbonate (Renvela) 800 mg TIDWMEALS PO 07/04/20 08:00 07/04/20 08:53 Insulin Glargine (Lantus Syringe) 10 unit QHS SQ 07/03/20 21:00 07/03/20 22:39 Pantoprazole Sodium (Protonix) 40 mg BIDAC PO 07/04/20 07:30 07/04/20 05:45 Justifications for Admission Other Justification MARCIA BARROS MD Jul 04, 2020 11:07
[2020-07-04] MEDS ORDERED: METO25TA4 PO (12:00)
--- NOTE | 2020-07-04 12:06 | PDOC3 ---
Discharge Summary Visit Information Date of Admission: Jul 02, 2020 Date of Discharge: Jul 04, 2020 Admitting Diagnosis: Atrial fibrillation Final Diagnosis Atrial fibrillation Brief Hospital Course Allergies Allergies Coded Allergies Type Severity Reaction Last Updated Verified levofloxacin Allergy Intermediate Nausea and Vomiting 09/28/13 Yes Vital Signs Vital Signs Date Time Temp Pulse Resp B/P (MAP) Pulse Ox O2 Delivery O2 Flow Rate FiO2 07/04/20 11:00 96.7 66 17 153/75 (101) 96 Room Air 96.7 Lab Results Laboratory Tests Test 07/03/20 04:18 07/03/20 07:30 07/03/20 11:26 07/03/20 16:26 White Blood Count 7.1 x10^3/uL (4.0-11.0) Red Blood Count 3.99 x10^6/uL (4.30-5.70) Hemoglobin 11.8 g/dL (13.0-17.5) Hematocrit 35.6 % (39.0-53.0) Mean Corpuscular Volume 89 fL (79-100) Mean Corpuscular Hemoglobin 30 pg (25-35) Mean Corpuscular Hemoglobin Concent 33 g/dL (31-37) Red Cell Distribution Width 17.7 % (11.5-14.5) Platelet Count 203 x10^3/uL (140-400) Neutrophils (%) (Auto) 74 % (31-73) Lymphocytes (%) (Auto) 9 % (24-48) Monocytes (%) (Auto) 12 % (0-9) Eosinophils (%) (Auto) 4 % (0-3) Basophils (%) (Auto) 1 % (0-3) Neutrophils # (Auto) 5.3 x10^3/uL (1.8-7.7) Lymphocytes # (Auto) 0.6 x10^3/uL (1.0-4.8) Monocytes # (Auto) 0.9 x10^3/uL (0.0-1.1) Eosinophils # (Auto) 0.3 x10^3/uL (0.0-0.7) Basophils # (Auto) 0.1 x10^3/uL (0.0-0.2) Heparin Anti-Xa Act, Unfractionated < 0.10 IU/mL (0.30-0.70) Sodium Level 140 mmol/L (136-145) Potassium Level 3.7 mmol/L (3.5-5.1) Chloride Level 102 mmol/L (98-107) Carbon Dioxide Level 18 mmol/L (21-32) Anion Gap 20 (6-14) Blood Urea Nitrogen 89 mg/dL (8-26) Creatinine 10.8 mg/dL (0.7-1.3) Estimated GFR (Cockcroft-Gault) 4.9 Glucose Level 75 mg/dL (70-99) Calcium Level 7.1 mg/dL (8.5-10.1) Troponin I Quantitative 0.120 ng/mL (0.000-0.055) Triglycerides Level 54 mg/dL (0-150) Cholesterol Level 100 mg/dL (0-200) LDL Cholesterol, Calculated 49 mg/dL (0-100) VLDL Cholesterol, Calculated 11 mg/dL (0-40) Non-HDL Cholesterol Calculated 60 mg/dL (0-129) HDL Cholesterol 40 mg/dL (40-60) Cholesterol/HDL Ratio 2.5 Glucose (Fingerstick) 65 mg/dL (70-99) 78 mg/dL (70-99) 127 mg/dL (70-99) Test 07/03/20 21:50 07/04/20 07:30 07/04/20 10:45 Glucose (Fingerstick) 296 mg/dL (70-99) 126 mg/dL (70-99) 138 mg/dL (70-99) Laboratory Tests Test 07/03/20 16:26 07/03/20 21:50 07/04/20 07:30 07/04/20 10:45 Glucose (Fingerstick) 127 mg/dL (70-99) 296 mg/dL (70-99) 126 mg/dL (70-99) 138 mg/dL (70-99) Brief Hospital Course Mr Bonilla is a 60-year-old male w/ PMHx DM2, HTN, PVD, ESRD on PD, diastolic CHF who presents with chest tightness to [place] [facility] on 07/02/2020. Patient states he was sitting at his doctor's office in the waiting room when the tightness began. Patient also reports nausea but denies vomiting. Patient denies any shortness of breath, dizziness, or radiation of pain. Patient was at his PCP for a wound check to lateral left lower leg. Patient states he did not notice the wound until Thursday. Patient denies taking anything prior to arrival. On further review he notes he did run out of coreg 5 days prior to presentation and noticed his heart racing since then. EKG sinus tachycardia, with a right bundle branch block, heart rate 131. Troponin 0.109. D-dimer was elevated 0.55. CTA ordered to rule out PE which was negative. Zosyn and Vanco given for lateral left leg wounds. Ankle, foot, tib-fib x-ray negative for osteomyelitis. Aspirin was also given to patient and he was transferred to [facility] for nephrology and cardiology consultation and further treatment. His chest pain had subsided by the time he arrived. Troponin still 0.1 On telemetry notably in atrial arrhythmia, he notes prior eliquis in the past but had life-threatening GI bleed. Rapid COVID 19 negative With metoprolol 50 mg twice daily has been in sinus rhythm. He does note he previously monitor an atrial tachycardia at [facility] and was going to have cardioversion but had also spontaneously gone to sinus rhythm. He has outpatient cardiology follow-up with [facility] cardiology and renal transplant in the next week and is stable for discharge home Consults: Cardiology, nephrology Problem list: Chest pain - resolved. likely from atrial tachycardia AFIB RVR - appears to be new. Cardiology consulted. 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 s/p TMA of right foot Left leg wound - appears to be pressure wound with no clear infection or cellulitis. Will have wound care for local debridement DM2 - sliding scale insulin H/O COVID - april 2020, currently rapid testing negative Greater than 30 minutes spent on d/c home with outpatient f/u Discharge Information Condition at Discharge: Improved Follow Up: Weeks Disposition/Orders: D/C to Home Scheduled Atorvastatin Calcium (Atorvastatin Calcium) 10 Mg Tablet, 10 MG PO HS for FOR CHOLESTEROL, #30 Ref 0 (Reported) Entered as Reported by: VINNY PULIDO on 07/03/20 0255 Last Action: Continued on 07/03/202052 by MARCIA BARROS MD Calcitriol (Calcitriol) 0.25 Mcg Capsule, 0.25 MCG PO DAILY for supplement, (Reported) Entered as Reported by: VINNY PULIDO on 07/03/20254 Last Action: Continued on 07/03/202052 by MARCIA BARROS MD Ferric Citrate (Ferric Citrate) 210 Mg Tablet, 3 TAB PO BIDWMEALS for HD, (Repor liza) Entered as Reported by: VINNY PULIDO on 07/03/20254 Last Action: New Order on 07/03/20254 by VINNY PULIDO Ferrous Sulfate (Ferrous Sulfate) 325 Mg Tablet, 325 MG PO QODAY for supplement, (Reported) Entered as Reported by: VINNY PULIDO on 07/03/20254 Last Action: Continued on 07/03/202052 by MARCIA BARROS MD Furosemide (Furosemide) 80 Mg Tablet, 160 MG PO DAILY for chf, (Reported) Entered as Reported by: VINNY PULIDO on 07/03/20254 Last Action: New Order on 07/03/20254 by VINNY PULIDO Insulin Aspart (Novolog) 100 Unit/1 Ml Vial, Unknown Dose SQ TIDWMEALS for dm, (Reported) Entered as Reported by: VINNY PULIDO on 07/03/20254 Last Taken: UNKNOWN on Unknown Date & Time Last Action: New Order on 07/03/20254 by VINNY PULIDO Insulin Glargine,Hum.rec.anlog (Lantus Solostar) 100 Unit/1 Ml Insuln.pen, 20 UNIT SQ HS for dm, (Reported) Entered as Reported by: VINNY PULIDO on 07/03/20254 Last Action: Converted on 07/03/202052 by MARCIA BARROS MD Losartan Potassium (Cozaar ) 25 Mg Tablet, 25 MG PO DAILY for HYPERTENSION, (Reported) Entered as Reported by: VINNY PULIDO on 07/03/20254 Last Action: New Order on 07/03/20254 by VINNY PULIDO Magnesium Oxide (Magnesium Oxide) 400 Mg Tablet, 400 MG PO DAILY for supplement, (Reported) Entered as Reported by: VINNY PULIDO on 07/03/20254 Last Action: New Order on 07/03/20254 by VINNY PULIDO Metoprolol Tartrate (Metoprolol Tartrate) 25 Mg Tablet, 50 MG PO BID for Afib for 30 Days, #120 Ref 2 Prescribed by: MARCIA BARROS MD on 07/04/20 1200 Pantoprazole Sodium (Protonix) 20 Mg Tablet.dr, 40 MG PO BID for gerd, (Reported) Entered as Reported by: VINNY PULIDO on 07/03/20254 Last Action: Converted on 07/03/202052 by MARCIA BARROS MD Sevelamer Carbonate (Renvela) 800 Mg Tablet, 800 MG PO TIDWMEALS for esrd, (Reported) Entered as Reported by: VINNY PULIDO on 07/03/20254 Last Action: Continued on 07/03/202052 by MARCIA BARROS MD Scheduled PRN Calcium Carbonate (Tums) 200 Mg Tab.chew, 2 TAB PO TIDPCHC PRN for INDIGESTION, (Reported) Entered as Reported by: VINNY PULIDO on 07/03/20254 Last Action: Continued on 07/03/202052 by MARCIA BARROS MD Hydrocodone Bit/Acetaminophen (Hydrocodone-Apap 5-325 ) 1 Tab Tablet, 1 TAB PO PRN Q6HRS PRN for PAIN, Ref 0 (Reported) Entered as Reported by: VINNY PULIDO on 07/03/20254 Last Action: Continued on 07/03/202052 by MARCIA BARROS MD Ondansetron (Ondansetron Odt) 4 Mg Tab.rapdis, 4 MG PO PRN Q8HRS PRN for NAUSEA/VOMITING, (Reported) Entered as Reported by: VINNY PULIDO on 07/03/20254 Last Action: Continued on 07/03/202052 by MARCIA BARROS MD Discontinued Medications Amlodipine Besylate (Amlodipine Besylate) 10 Mg Tablet, 10 MG PO DAILY for htn, (Reported) Entered as Reported by: VINNY PULIDO on 07/03/20254 Last Action: New Order on 07/03/20254 by VINNY PULIDO Carvedilol (Carvedilol) 25 Mg Tablet, 25 MG PO BIDWMEALS for CARDIAC, (Reported) Entered as Reported by: VINNY PULIDO on 07/03/20254 Last Action: New Order on 07/03/20254 by VINNY PULIDO Hydralazine Hcl (Hydralazine Hcl) 25 Mg Tablet, 25 MG PO TID for htn, (Reported) Entered as Reported by: VINNY PULIDO on 07/03/20254 Last Action: New Order on 07/03/20254 by VINNY PULIDO Justicifation of Admission Dx: Justifications for Admission: Justification of Admission Dx: Yes CHF: Cardiac Arrhythmias MARCIA BARROS MD Jul 04, 2020 12:06
--- NOTE | 2020-07-04 12:18 | PDOC ---
DATE OF SERVICE DATE: 07/04/20 TIME: 12:18 SUBJECTIVE ROS Stable, possible dc home today OBJECTIVE Vital Signs Vital Signs Date Time Temp Pulse Resp B/P (MAP) Pulse Ox O2 Delivery O2 Flow Rate FiO2 07/04/20 11:00 96.7 66 17 153/75 (101) 96 Room Air 96.7 I & 0 Intake and Output 07/04/20 07:00 Intake Total 1000 ml Output Total 200 ml Balance 800 ml Intake Oral 1000 ml Output Urine Total 200 ml # Voids 1 PHYSICAL EXAM Physical Exam General: No acute distress HEENT: Atraumatic, Mucous membr. moist/pink Neck supple Lungs: diminished bases, non labored Heart: (AFIB RVR) Abdomen: Soft, PD actheter place, No tenderness, no discharge from exit site Extremities: No cyanosis, No edema Skin: left lateral calf wound with large scabbing) Neuro: Normal speech, Sensation intact Psych/Mental Status: Mental status NL, Other (flat affect) DIAGNOSIS/ASSESSMENT Assessment & Plan ESRD on PD under Dr. Wu's care CAPD , Continue per home prescription Chest pain - resolved. likely from atrial tachycardia AFIB RVR - Cardiology consulted Chronic RBBB Hx of GI bleed due to eliquis Hx of RLE PAD - prior INTRAVENOUS THERAPY NURSE/stent. s/p TMA of right foot DM2 COVID 19 suspected - rapid testing negative COMMENT/RELEVANT DATA Meds Current Medications Medications (Trade) Dose Ordered Sig/Jorge Start Time Stop Time Status Last Admin Dose Admin Acetaminophen/ Hydrocodone Bitart (Lortab 5/325) 1 tab PRN Q6HRS PRN 07/03/20 21:00 Aspirin (Ecotrin) 81 mg [id number] 07/03/20 15:00 07/04/20 08:53 81 MG Atorvastatin Calcium (Lipitor) 10 mg HS 07/03/20 21:00 07/03/20 22:33 10 MG Calcitriol (Rocaltrol) 0.25 mcg DAILY 07/04/20 09:00 07/04/20 08:59 0.25 MCG Calcium Carbonate/ Glycine (Tums) 500 mg TIDPCHC 07/03/20 21:00 07/04/20 08:53 500 MG Carvedilol (Coreg) 25 mg BIDWMEALS 07/03/20 01:00 07/03/20 12:46 DC 07/03/20 01:16 25 MG Digoxin (Lanoxin) 500 mcg 1X ONCE 07/03/20 12:30 07/03/20 12:31 DC 07/03/20 12:30 500 MCG Ferrous Sulfate (Feosol) 325 mg QODAY 07/05/20 09:00 Heparin Sodium (Porcine) (Heparin Sodium) 2,550 unit PRN Q6HRS PRN 07/02/20 23:45 Heparin Sodium/ Dextrose 250 ml @ 0 mls/hr CONT PRN 07/02/20 23:45 Info (Anti-Coagulation Monitoring By Pharmacy) 1 each PRN DAILY PRN 07/03/20 00:15 07/03/20 02:38 1 EACH Insulin Glargine (Lantus Syringe) 10 unit QHS 07/03/20 21:00 07/03/20 22:39 10 UNIT Metoprolol Tartrate (Lopressor Vial) 5 mg PRN Q6HRS PRN 07/03/20 09:30 Metoprolol Tartrate (Lopressor) 25 mg Q6HRS 07/03/20 13:00 07/04/20 05:45 25 MG Ondansetron HCl (Zofran Odt) 4 mg PRN Q8HRS PRN 07/03/20 21:00 Pantoprazole Sodium (Protonix) 40 mg BIDAC 07/04/20 07:30 07/04/20 05:45 40 MG Sevelamer Carbonate (Renvela) 800 mg TIDWMEALS 07/04/20 08:00 07/04/20 08:53 800 MG Lab Laboratory Tests Test 07/03/20 16:26 07/03/20 21:50 07/04/20 07:30 07/04/20 10:45 Glucose (Fingerstick) 127 mg/dL (70-99) 296 mg/dL (70-99) 126 mg/dL (70-99) 138 mg/dL (70-99) Results All relevant outside records, renal labs, imaging studies, telemetry/EKG's were reviewed. Justicifation of Admission Dx: Justifications for Admission: Justification of Admission Dx: Yes CHF: Cardiac Arrhythmias LOBO RANGEL MD Jul 04, 2020 12:18
--- NOTE | 2020-07-04 12:32 | NUR ---
SW following for discharge planning. Spoke with RN and reviewed chart. Pt to discharge home today, 07/04 self-care. Pt on room air and oral medications. No further SW needs.
[2020-07-04 12:33] VITALS: BP 153/75
[2020-07-04] MEDS ORDERED: ASPI-886 PO (14:12)
--- NOTE | 2020-07-04 14:20 | PDOC ---
CARDIO Progress Notes Date and Time Date of Service 07/04/2020 Time of Evaluation 1210 Subjective Subjective: No Chest Pain, No shortness of breath, No Palpitations Vitals Vitals Vital Signs Date Time Temp Pulse Resp B/P (MAP) Pulse Ox O2 Delivery O2 Flow Rate FiO2 07/04/20 12:33 66 153/75 07/04/20 11:00 96.7 17 96 Room Air 96.7 Weight Weight [ ] Input and Output Intake and Output Intake and Output 07/04/20 07:00 Intake Total 1000 ml Output Total 200 ml Balance 800 ml Intake Oral 1000 ml Output Urine Total 200 ml # Voids 1 Laboratory Labs Laboratory Tests Test 07/03/20 16:26 07/03/20 21:50 07/04/20 07:30 07/04/20 10:45 Glucose (Fingerstick) 127 mg/dL (70-99) 296 mg/dL (70-99) 126 mg/dL (70-99) 138 mg/dL (70-99) Physical Exam HEENT: Neck Supple W Full Motion Chest: Symmetric LUNGS: Other (diminished bases) Heart: S1S2, RRR (SR) Abdomen: Soft N/T Extremities: No Calf Tenderness Neurology: alert, oriented, follow commands Assessment Assessment 1. AFIB RVR: new. 2. ESRD: uses PD.being considered for renal transplant 3. Mild troponin elevation: peaked at 0.1, possibly demand mediated with above culprits 4. Chronic RBBB 5. Hx of GI bleed due to eliquis 6. Acute on chronic diastolic CHF: compensated 7. 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 8. Left calf wound: appears to be pressure wound with large scabbing 9. Positive for LLE claudication: possibly combined arterial/neuropathic 10. DM2 with DPN 11. PUI 12. Chest pain: likely from RVR Recommendations 1. DC coreg. Continue po lopressor 2. DC heparin. Start on ASA for stroke prevention. Unclear source of GI bleed in the past but reported started after low dose eliquis 3. Restart other home BP meds 4. Lipids are well on goal. Continue secondary prevention measures 5. Consider LLE arterial duplex and outpt ischemic w/u as an outpt 6. Pt is to see Dr. Adam valdovinos and has appointment already with [facility]. Discussed with pt and he will need MCOT. Justicifation of Admission Dx: Justifications for Admission: Justification of Admission Dx: Yes CHF: Cardiac Arrhythmias JOÃO GONZALEZ BULB GROWER Jul 04, 2020 14:20
--- NOTE | 2020-07-04 14:45 | NUR ---
Discharge Note: NIKKI BLAIR [facility] Discharge instructions and discharge home medications reviewed with Patient and a copy given. All questions have been answered and understanding verbalized. The following instructions and handouts were given: discharge instructions, med list, afib info. Discontinued lines and drains: Peripheral IV intact. Patient discharged to Home or Self Care with Family Member via Wheelchair at 1445. Addendum: 07/04/20 at 1913 by JONH MAURICIO RN D/C wound pic taken & placed in chart. Education given to patient about care of wound.
[2020-07-04] MEDS: ANTI-COAG MONITOR BY PHARMACY. MC PRN (16:51)
[2020-07-05] MEDS ORDERED: FERROUS SULFATE 325 MG TABLET. PO SCH (09:00)
== END 2020-07-04 14:45 | disposition home or self-care (01) | DRG 308 ==
LOC: 6 SOUTH 23:39
PROVIDERS: ADMIT Internal Medicine; ATTEND Internal Medicine
DX: I48.91 Unspecified atrial fibrillation (principal); N18.6 End stage renal disease; I50.33 Acute on chronic diastolic (congestive) heart failure; I13.2 Hypertensive heart and chronic kidney disease with heart failure and with stage 5 chronic kidney disease, or end stage renal disease; E11.22 Type 2 diabetes mellitus with diabetic chronic kidney disease; I45.10 Unspecified right bundle-branch block; F41.9 Anxiety disorder, unspecified; E78.5 Hyperlipidemia, unspecified; E11.51 Type 2 diabetes mellitus with diabetic peripheral angiopathy without gangrene; E11.42 Type 2 diabetes mellitus with diabetic polyneuropathy; M19.90 Unspecified osteoarthritis, unspecified site; Z20.822 Contact with and (suspected) exposure to COVID-19; Z88.8 Allergy status to other drugs, medicaments and biological substances; Z89.429 Acquired absence of other toe(s), unspecified side; Z99.2 Dependence on renal dialysis; Z79.899 Other long term (current) drug therapy; Z83.3 Family history of diabetes mellitus
CPT/HCPCS: 36415; 80048; 80061; 82962; 84484; 85025; 85520; 93005; J1160; J1815; G0378

== ENCOUNTER 2021-05-02 13:03 | Emergency (ER) | payer BC, MEDICARE ==
[~2021-05-02] VITALS: Ht 177.8 cm; Wt 95.5 kg
[~2021-05-02 13:03] MED LIST changes: +AMLO-187 PO; +ASPI-886 PO; +ATOR10TA60 PO; +CALC0.25 PO; +CALC200T3 PO; +CARV25TA2 PO; +FERR210T PO; +FERR325T14 PO; +FURO80TA3 PO; +HYDR-2761 PO; +HYDR-2868 PO; +INSU100I13 SQ; +INSU100V31 SQ; +LOSA25TA PO; +MAGN400T48 PO; +METO25TA4 PO; +ONDA4TAB12 PO; +PANT20TA2 PO; +SEVE800T9 PO
--- NOTE | 2021-05-02 13:52 | RAD ---
XR CHEST 1V 05/02/2021 1:39 PM INDICATION: Altered mental status COMPARISON: None available TECHNIQUE: Portable frontal view of the chest is provided. FINDINGS: The cardiomediastinal silhouette is enlarged. Lungs are clear. There are no significant pleural effusions. There is mild pulmonary vascular congestion. No pneumotho rax. No suspicious osseous abnormality. IMPRESSION: Enlarged cardiac silhouette is noted be seen with cardiomyopathy or pericardial effusion. Mild pulmon jenny vascular congestion as may be seen with congestive heart failure. Electronically signed by: Laverne Mcgee MD (05/02/2021 1:50 PM) [id number]
[2021-05-02 14:21] LABS: BASO # 0.1 x10^3/uL (0.0-0.2); BASO % 1 % (0-3); EOS # 0.2 x10^3/uL (0.0-0.7); EOS % 3 % (0-3); HEMATOCRIT 37.1 % (39.0-53.0); HEMOGLOBIN 11.9 g/dL (13.0-17.5); LYMPH # 0.4 x10^3/uL (1.0-4.8); LYMPH % 6 % (24-48); MEAN CORPUSCULAR HEMOGLOBIN 30 pg (25-35); MEAN CORPUSCULAR HGB CONC 32 g/dL (31-37); MEAN CORPUSCULAR VOLUME 93 fL (79-100); MONO # 0.4 x10^3/uL (0.0-1.1); MONO % 6 % (0-9); NEUT # 5.9 x10^3/uL (1.8-7.7); NEUT % 85 % (31-73); PLATELET COUNT 223 x10^3/uL (140-400)
--- NOTE | 2021-05-02 14:26 | EKG ---
[facility] [address] [place] [address] Test Date: 2021-05-02 Test Time: 13:40:23 Pat Name: NIKKI BLAIR Department: Room: Gender: M Water Operator: : 1960 Requested By: OVIDIO GALLEGOS Order Number: [id number] Reading MD: Jose Carlos Segura Measurements Intervals [place] Rate: 112 P: GA: QRS: -27 QRSD: 108 T: 191 QT: 370 QTc: 507 Interpretive Statements ACCELERATED JUNCTIONAL RHYTHM LEFTWARD AXIS LVH WITH REPOLARIZATION ABNORMALITY ABNORMAL ECG Electronically Signed On 05-03-2021 15:36:32 [employer] OFFICER by Jose Carlos Segura
[2021-05-02 14:30] LABS: CALCIUM 6.8 mg/dL (8.5-10.1); CREATININE 12.6 mg/dL (0.7-1.3); GFR 4.1; POTASSIUM 3.6 mmol/L (3.5-5.1)
[2021-05-02 14:41] LABS: ALBUMIN 1.9 g/dL (3.4-5.0); ALBUMIN/GLOBULIN RATIO 0.5 (1.0-1.7); MAGNESIUM 2.1 mg/dL (1.8-2.4); PHOSPHORUS 9.6 mg/dL (2.6-4.7); TOTAL BILIRUBIN 0.5 mg/dL (0.2-1.0); TOTAL PROTEIN 5.6 g/dL (6.4-8.2)
[2021-05-02 14:45] LABS: CREATINE KINASE 347 U/L (39-308)
--- NOTE | 2021-05-02 15:17 | RAD ---
CT Head W/O Contrast: History: Reason: Altered mental status, possible fall / Spl. Instructions: / History: Comparison: none Axial images were obtained without contrast. There is moderate diffuse atrophy. There is no mass effect, extraaxial fluid collections or hydrocep halus. There is no focal loss of leavitt-white matter distinction to suggest acute ischemia, i.e. stroke. Impression: No acute findings. End of impression CT C-Spine without contrast: Clinical History: Reason: Altered mental status, possible fall / Spl. Instructions: / History: Technique: Axial helical images of the cervical spine were obtained without contrast, axial coronal and sagittal reconstruction was performed. Findings: There is no loss of vertebral body stature. There is no prevertebral soft tissue swelling. The vert ebral bodies are well aligned. The C1-C2 relationship is normal. The visualized osseous structures a ppear normal. There is straightening of the normal cervical lordosis which can be positional or can b e secondary to muscle spasm. Evaluation of the central canal is limited without contrast. Impression: No acute findings. Clinical correlation suggested. PQRS Compliance Statement: One or more of the following individualized dose reduction techniques were utilized for this examinat ion: 1. Automated exposure control 2. Adjustment of the mA and/or kV according to patient size 3. Use of iterative reconstruction technique Electronically signed by: Dell Hastings III, MD (05/02/2021 3:14 PM) [facility]
--- NOTE | 2021-05-02 15:21 | PHYS DOC ---
Past Medical History Past Medical History: Diabetes-Type II, Pneumonia Past Surgical History: Other Additional Past Surgical Histo: DOUBLE HERNIA REPAIR Smoking Status: Never Smoker Alcohol Use: None Drug Use: None General Adult EDM: Chief Complaint: ALTERED MENTAL STATUS HPI: HPI: Limited HPI related to patient's current mental state of confusion upon arrival to the emergency department. 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 Patient currently de nies aches or pains, salesperson [employer] reports blood glucose of 44 on scene. Review of Systems: Review of Systems: Limited ROS related to patient's altered mental status upon arrival to the emergency department by EMS. Heart Score: C/O Chest Pain: No Risk Factors: Risk Factors: DM, Current or recent (<one month) smoker, HTN, HLP, family history of CAD, obesity. Risk Scores: Score 0 - 3: 2.5% MACE over next 6 weeks - Discharge Home Score 4 - 6: 20.3% MACE over next 6 weeks - Admit for Clinical Observation Score 7 - 10: 72.7% MACE over next 6 weeks - Early Invasive Strategies Allergies: Allergies: Allergies Coded Allergies Type Severity Reaction Last Updated Verified levofloxacin Allergy Intermediate Nausea and Vomiting 09/28/13 Yes Physical Exam: PE: Initial physical exam upon arrival to the emergency department via EMS: Constitutional: Well developed, well nourished, no acute distress, nontoxic in appearance, in no apparent distress. Neurologic: Alert and oriented to self, patient making incomprehensible noises when answering other orientation questions. Patient's blood sugar 55. We will treat and revisit physical examination. Lung: Patient in no respiratory distress, lung sounds clear all lung muñoz. Cardiovascular: Tachycardic rhythm, no cyanosis appreciated, distal cap refill less than 2 seconds. Physical examination after patient's blood sugar treated, currently blood glucose equal 76 Constitutional: Well developed, well nourished, no acute distress, non-toxic appearance. 61-year-old male in no apparent distress. HENT: Normocephalic, atraumatic. Eyes: Conjunctiva normal, no discharge. Neck: Normal range of motion, no stridor. Cardiovascular: No cyanosis appreciated, distal cap refill less than 2 seconds. Heart rate tachycardic Lungs & Thorax: Patient is in no respiratory distress, no audible adventitious lung sounds appreciated. Abdomen: Nontender, no abnormalities noted. Skin: Warm, dry, no erythema, no rash. Back: No tenderness, no deformities. Extremities: No tenderness, no cyanosis, no clubbing, ROM intact, no edema. 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 2+ pedal pulses bilaterally. Neurologic: Alert and oriented X 3, normal motor function, normal sensory function, no focal deficits noted. Psychologic: Affect normal, judgement normal, mood normal. Current Patient Data: Labs: Laboratory Tests Test 05/02/21 13:07 05/02/21 13:39 05/02/21 14:10 Glucose (Fingerstick) 53 mg/dL (70-99) L 76 mg/dL (70-99) White Blood Count 7.0 x10^3/uL (4.0-11.0) Red Blood Count 4.00 x10^6/uL (4.30-5.70) L Hemoglobin 11.9 g/dL (13.0-17.5) L Hematocrit 37.1 % (39.0-53.0) L Mean Corpuscular Volume 93 fL (79-100) Mean Corpuscular Hemoglobin 30 pg (25-35) Mean Corpuscular Hemoglobin Concent 32 g/dL (31-37) Red Cell Distribution Width 15.0 % (11.5-14.5) H Platelet Count 223 x10^3/uL (140-400) Neutrophils (%) (Auto) 85 % (31-73) H Lymphocytes (%) (Auto) 6 % (24-48) L Monocytes (%) (Auto) 6 % (0-9) Eosinophils (%) (Auto) 3 % (0-3) Basophils (%) (Auto) 1 % (0-3) Neutrophils # (Auto) 5.9 x10^3/uL (1.8-7.7) Lymphocytes # (Auto) 0.4 x10^3/uL (1.0-4.8) L Monocytes # (Auto) 0.4 x10^3/uL (0.0-1.1) Eosinophils # (Auto) 0.2 x10^3/uL (0.0-0.7) Basophils # (Auto) 0.1 x10^3/uL (0.0-0.2) Sodium Level 132 mmol/L (136-145) L Potassium Level 3.6 mmol/L (3.5-5.1) Chloride Level 95 mmol/L (98-107) L Carbon Dioxide Level 18 mmol/L (21-32) L Anion Gap 19 (6-14) H Blood Urea Nitrogen 94 mg/dL (8-26) H Creatinine 12.6 mg/dL (0.7-1.3) H Estimated GFR (Cockcroft-Gault) 4.1 BUN/Creatinine Ratio 7 (6-20) Glucose Level 86 mg/dL (70-99) Calcium Level 6.8 mg/dL (8.5-10.1) L Phosphorus Level 9.6 mg/dL (2.6-4.7) H Magnesium Level 2.1 mg/dL (1.8-2.4) Total Bilirubin 0.5 mg/dL (0.2-1.0) Aspartate Amino Transferase (AST) 26 U/L (15-37) Alanine Aminotransferase (ALT) 32 U/L (16-63) Alkaline Phosphatase 110 U/L (46-116) Creatine Kinase 347 U/L (39-308) H Creatine Kinase MB (Mass) 8.3 ng/mL (0.0-3.6) H Creatine Kinase MB Relative Index 2.4 % (0-4) Troponin I High Sensitivity 25 ng/L (4-75) DI-Bvv-A-Type Natriuretic Peptide > 71037 pg/mL (0-124) H Total Protein 5.6 g/dL (6.4-8.2) L Albumin 1.9 g/dL (3.4-5.0) L Albumin/Globulin Ratio 0.5 (1.0-1.7) L Laboratory Tests 05/02/21 14:10 Laboratory Tests 05/02/21 14:10 Vital Signs: Vital Signs Date Time Temp Pulse Resp B/P (MAP) Pulse Ox O2 Delivery O2 Flow Rate FiO2 05/02/21 13:13 96.4 115 18 113/73 (86) Room Air 96.4 EKG: EKG: EKG performed at 1340 by ED nursing staff shows accelerated junctional rhythm without other ectopy, heart rate 112 bpm, no appreciable P wave, QTc interval 0.507, no acute STEMI, no ACS, no acute ischemia appreciated, EKG interpreted by ED attending physician Dr. Mireles. Radiology/Procedures: Radiology/Procedures: STATUS: REG ER ORD. PHYSICIAN: OVIDIO GALLEGOS APRN REASON: Altered mental status, possible fall PROCEDURE: CT HEAD AND CERVICAL SPINE WO CT Head W/O Contrast: History: Reason: Altered mental status, possible fall / Spl. Instructions: / History: Comparison: none Axial images were obtained without contrast. There is moderate diffuse atrophy. There is no mass effect, extraaxial fluid collections or hydrocephalus. There is no focal loss of leavitt-white matter distinction to suggest acute ischemia, i.e. stroke. Impression: No acute findings. End of impression CT C-Spine without contrast: Clinical History: Reason: Altered mental status, possible fall / Spl. Instructions: / History: Technique: Axial helical images of the cervical spine were obtained without contrast, axial coronal and sagittal reconstruction was performed. Findings: There is no loss of vertebral body stature. There is no prevertebral soft t issue swelling. The vertebral bodies are well aligned. The C1-C2 relationship is normal. The visualized osseous structures appear normal. There is straightening of the normal cervical lordosis which can be positional or can be secondary to muscle spasm. Evaluation of the central canal is limited without contrast. Impression: No acute findings. Clinical correlation suggested. STATUS: PRE ER ORD. PHYSICIAN: OVIDIO GALLEGOS APRN REASON: Altered mental status PROCEDURE: CHEST AP ONLY XR CHEST 1V 05/02/2021 1:39 PM INDICATION: Altered mental status COMPARISON: None available TECHNIQUE: Portable frontal view of the chest is provided. FINDINGS: The cardiomediastinal silhouette is enlarged. Lungs are clear. There are no significant pleural effusions. There is mild pulmonary vascular congestion. No pneumothorax. No suspicious osseous abnormality. IMPRESSION: Enlarged cardiac silhouette is noted be seen with cardiomyopathy or pericardial effusion. Mild pulmonary vascular congestion as may be seen with congestive heart failure. Electronically signed by: Laverne Mcgee MD (05/02/2021 1:50 PM) [id number] Course & Med Decision Making: Course & Med Decision Making Pertinent Labs and Imaging studies reviewed. (See chart for details) 61-year-old male, vital signs reviewed, presents emergency department concerning confused state and blood sugar of 44 in route via EMS. Physical examination concerning for hypoglycemic episode versus other neurologic process, patient is unable to explain history of tachycardia or other history at time of initial nidia luation, will order CT head and C-spine related to patient found in tub, uncertain if fall or hit head, patient unable to discern if he is in pain, EKG, AP chest x-ray, blood cultures x2, CBC with auto differential, cardiac isoenzymes, CMP, magnesium, NTproBNP, phosphorus level, troponin I high-sen sitivity, urinalysis assay. Blood sugar upon arrival and during physical examination equals 55, will give patient or excuse in order renal specific food tray, will reevaluate after period of time. Patient is EKG concerning for accelerated junctional tachycardia, x-ray of chest concerning for congestive heart failure, CT head and C-spine nonconcerning for acute fracture or CVA. Urinalysis assay nonconcerning for acute UTI, discussed findings with patient, patient now alert and oriented x3, reports he has a history of tachycardic arrhythmias and is seeing a kerfer machine operator at [facility] on Thursday for ongoing investigation of this tachycardia, patient denies chest pains or discomfort, reports he does have a history of congestive heart failure and end-stage renal disease in which he performs peritoneal dialysis on self at home. Patient denies headaches or head pain, denies other physical complaints or physical concerns, patient reports he has been hypoglycemic in the past and usually catches it before it gets this bad. Patient states he recalls all the events, reports he did go into the bathroom at home and became very weak and tried to sit down however lost his balance and leaned into the tub, patient denies hitting his head. Patient reports he was unable to move at that point, remembers daughter coming to see him however he was unable to tell her how he felt. Patient states this can happen when his blood sugars become very low. Patient recalls he gained his "bearings "after eating while he was in the emergency department. Patient states he currently feels fine and wishes to go home. A reexamination of physical status was performed, nonconcerning for acute process except for tachycardia which patient is aware of and is currently seeing a cardiology physician this coming Thursday. Patient denies chest pains or shortness of breath. Is in no respiratory distress, no adventitious lung sounds are appreciated, this is unlikely a COPD exacerbation. This is most likely a hypoglycemic event. Discussed with patient to monitor blood sugars closely at home to help prevent other hypoglycemic events. Keep appointment with cardiology this coming Thursday, discussed return to ER precautions and concerns, patient gave verbal understanding of and is amenable to ED discharge planning. Patient's discharge blood sugar level 97. Discussed with the patient all findings and diagnostic testing as well as the need to follow-up with their primary care provider for further evaluation and treatment or return to the ED if any new or worsening symptoms. Strict return precautions were also discussed at length, the patient voiced understanding and agreement with the discharge planning. The patient was nontoxic in appearance, in no apparent distress, and hemodynamically stable at the time of disposition. Dragon Disclaimer: Dragon Disclaimer: This electronic medical record was generated, in whole or in part, using a voice recognition dictation system. Departure Departure Impression: Primary Impression: Hypoglycemia Additional Impression: Tachycardia Disposition: 01 HOME / SELF CARE / HOMELESS Condition: GOOD Referrals: NICHOLAS MCCRACKEN (PCP) Patient Instructions: Hypoglycemia (Low Blood Sugar), Nonspecific Tachycardia Additional Instructions: AGYou were seen today in the emergency department for altered mental status at home. Your blood sugar was 44 in route to the emergency department. A cardiac and neurological examination was performed today, cardiac blood work was nonconcerning, the CT of your head and C-spine did not show any concerning findings of stroke or broken bones, you were given food while waiting for your results to complete. Your current blood sugar is 97 and you are currently alert and oriented x3. You have no complaints. I feel is safe for you to go home. Please monitor your blood sugars closely at home to prevent any further hypoglycemic episodes. We did discuss your fast heart rate and you reported that you are well aware of this and are seeing a kerfer machine operator at [facility] this coming Thursday. Please keep this appointment for evaluation of your fast heart rate, this is a must. Please return to the emergency department for worsening symptoms or other concerns. Thank you for visiting our Emergency Department. It was a pleasure taking care of you today in the emergency department and we appreciate you trusting us with your care. If any additional problems come up don't hesitate to return to visit us. Please follow up with your primary care provider so they can plan additional care if needed and know about the problem that you had. If symptoms worsen come back to the Emergency Department. Any concerning symptoms that start such as chest pain, shortness of air, weakness or numbness on one side of the body, running high fevers or any other concerning symptoms return to the ER. EMERGENCY DEPARTMENT GENERAL DISCHARGE INSTRUCTIONS Thank you for coming to [facility] Emergency Department (ED) today and trusting us with you care. We trust that you had a positive experience in our Emergency Department. If you wish to speak to the department management, you may call the Director at [phone]. YOUR FOLLOW UP INSTRUCTIONS ARE FOLLOWS: 1. Do you have a private Doctor? If you do not have a private doctor, please ask for a resource list of physicians or clinics that may be able to assist you with follow up care. 2. The Emergency Physicain has interpreted your x-rays. The X-Ray specialist will also review them. If there is a change in the findings, you will be notified in 48 hours when at all possible. 3. A lab test or culture has been done, your results will be reviewed and you will be notified if you need a change in treatment. ADDITIONAL INSTRUCTIONS AND INFORMATION: 1. Your care today has been supervised by a physician who is specially trained in emergency care. Many problems require more than one evaluation for a complete diagnosis and treatment. We recommend that you schedule your follow up appointment as recommended to ensure complete treatment of you illness or injury. If you are unable to obtain follow up care and continue to have a problem, or if your condition worsens, we recommend that you return to the ED. 2. We are not able to safely determine your condition over the phone nor are we able to give sound medical advice over the phone. For these safety reasons, if you call for medical advice we will ask you to come to the ED for further evaluation. 3. If you have any questions regarding these discharge instructions please call the ED at [phone]. SAFETY INFORMATION: In the interest of safety, wellness, and injury prevention; we encourage you to wear your sealbelt, if you smoke; quite smoking, and we encourage family to use a protective helmet for bicycling and other sporting events that present an increased risk for head injury. IF YOUR SYMPTOMS WORSEN OR NEW SYMPTOMS DEVELOP, OR YOU HAVE CONCERNS ABOUT YOUR CONDITION; OR IF YOUR CONDITION WORSENS WHILE YOU ARE WAITING FOR YOUR FOLLOW UP APPOINTMENT; EITHER CONTACT YOUR PRIMARY CARE DOCTOR, THE PHYSICIAN WHOSE NAME AND NUMBER YOU WERE GIVEN, OR RETURN TO THE ED IMMEDIATELY. OVIDIO GALLEGOS APRN May 02, 2021 15:21
[2021-05-02 16:28] LABS: BILIRUBIN,URINE NEGATIVE (NEG); CLARITY,URINE CLEAR; COLOR,URINE YELLOW; NITRITE,URINE NEGATIVE (NEG); PH,URINE 5.5 (<5.0-8.0); PROTEIN,URINE 100 mg/dL (NEG-TRACE); UROBILINOGEN,URINE 0.2 mg/dL (0.2 mg/dL)
[2021-05-02 16:39] LABS: BACTERIA,URINE FEW /HPF (0-FEW); RBC,URINE 0 /HPF (0-2); WBC,URINE OCC /HPF (0-4)
[2021-05-02 19:28] VITALS: BP 99/73
== END 2021-05-02 20:00 | disposition home or self-care (01) ==
LOC: ER 13:03
DX: E11.65 Type 2 diabetes mellitus with hyperglycemia (principal); R00.0 Tachycardia, unspecified; R51.9 Headache, unspecified; M54.2 Cervicalgia; Z88.1 Allergy status to other antibiotic agents
CPT/HCPCS: 36415; 70450; 71045; 72125; 80053; 81001; 82553; 82962; 83735; 83880; 84100; 84484; 85025; 87040; 93005; 99285; P9612